=== PATIENT | male | born 1970 | race African-American/Black ===

== ENCOUNTER 2019-09-07 03:50 | Inpatient (IN) | payer MEDICAID ==
[~2019-09-07] VITALS: Ht 177.8 cm; Wt 97.5 kg
[2019-09-07] MEDS ORDERED: AZITHROMYCIN 500 MG in DEXT 5% WATER 250 ML IV SCH (07:30)
[2019-09-07 07:53] LABS: EOSINOPHILS % 14.3 % (0.0-5.0); HEMATOCRIT. 36.9 % (42.0-52.0); HEMOGLOBIN. 11.9 g/dL (14.0-18.0); LYMPHOCYTES % 20.1 % (20.0-50.0); MEAN CORPUSCULAR VOLUME 83.5 fL (80.0-94.0); MEAN PLATELET VOLUME 8.5 fl (7.4-10.4); MONOCYTES % 8.9 % (2.0-8.0); NEUTROPHILS % 55.7 % (40.0-76.0); PLATELET 316 x1000/uL (130-400); RED BLOOD CELL COUNT 4.42 mill/uL (4.7-6.1); RED CELL DISTRIBUTION WIDTH 15.5 % (11.6-14.6)
[2019-09-07 07:58] LABS: CHLORIDE 110 mEq/L (98-107)
[2019-09-07] MEDS ORDERED: FUROSEMIDE 20MG/2ML VIAL IVP ONE (10:00)
[2019-09-07 12:04] VITALS: BP 138/81
[2019-09-07] MEDS ORDERED: IOHEXOL-350 100 ML BOTTLE ONE (12:32)
[2019-09-07] MEDS ORDERED: ACETAMINOPHEN 325MG TABLET PO PRN (13:00)
[2019-09-07] MEDS ORDERED: LORAZEPAM 0.5MG TABLET PO PRN (13:00)
[2019-09-07] MEDS ORDERED: DOCUSATE SODIUM 100MG CAPSULE PO PRN (13:00)
[2019-09-07] MEDS ORDERED: ENOXAPARIN 40MG/0.4ML SYR SUBCUT SCH (13:00)
[2019-09-07] MEDS ORDERED: GUAIFENESIN 200MG/10ML SUGAR FREE UDC PO PRN (13:00)
[2019-09-07] MEDS ORDERED: ZOLPIDEM TARTRATE 5MG TABLET PO PRN (13:00)
[2019-09-07] MEDS ORDERED: ONDANSETRON HCL 4MG/2ML INJ IV PRN (13:00)
[2019-09-07] MEDS ORDERED: IPRATROPIUM/ALBUTEROL 0.5-3(2.5)MG/3ML NEB NEB PRN (13:00)
[2019-09-07] MEDS ORDERED: KETOROLAC 15MG/ML VIAL IV PRN (13:00)
[2019-09-07] MEDS ORDERED: MAGNESIUM/ALUMINUM HYDROXIDE/SIMETHICONE 30ML UDC PO PRN (13:00)
[2019-09-07] MEDS ORDERED: CLONIDINE 0.1MG TABLET PO PRN (13:00)
[2019-09-07] MEDS ORDERED: NITROGLYCERIN 0.4MG TABLET SL SL PRN (13:00)
[2019-09-07 14:00] VITALS: BP 137/80
[2019-09-07 14:27] LABS: TOTAL IRON BINDING CAPACITY 308 ug/dL (250-450)
[2019-09-07 14:40] LABS: FOLIC ACID (FOLATE) SERUM 13.5 ng/mL (>5.38)
[2019-09-07] MEDS: ASPIRIN 325MG EC TABLET PO SCH (15:07)
[2019-09-07 16:00] VITALS: BP 137/90
[2019-09-07 16:34] LABS: CREATINE KINASE 70 IU/L (39-308)
[2019-09-07 16:35] LABS: CREATINE KINASE MB FRACTION 1.3 ng/mL (0.5-3.6)
[2019-09-07 18:00] VITALS: BP 141/89
[2019-09-07] MEDS: SPIRONOLACTONE 25MG TABLET PO SCH (18:55)
[2019-09-07 20:00] VITALS: BP 121/81
[2019-09-07] MEDS: FAMOTIDINE 20MG TABLET PO SCH (20:48)
[2019-09-07] MEDS: ENOXAPARIN 30MG/0.3ML SYR SUBCUT SCH (20:48)
[2019-09-07] MEDS: FUROSEMIDE 100MG/10ML VIAL IVP SCH (20:48)
[2019-09-07] MEDS: CARVEDILOL 3.125 MG TABLET PO SCH (20:49)
[2019-09-07 22:00] VITALS: BP 110/78
[2019-09-08] VITALS (12 sets, daily range): BP systolic 92–137; BP diastolic 62–90
[2019-09-08 00:39] LABS: CREATINE KINASE 65 IU/L (39-308)
[2019-09-08 00:40] LABS: CREATINE KINASE MB FRACTION 1.6 ng/mL (0.5-3.6)
[2019-09-08] MEDS: SPIRONOLACTONE 25MG TABLET PO SCH ×2 (05:47→18:02)
[2019-09-08 08:17] LABS: EOSINOPHILS % 14.2 % (0.0-5.0); HEMATOCRIT. 35.9 % (42.0-52.0); HEMOGLOBIN. 11.7 g/dL (14.0-18.0); LYMPHOCYTES % 24.4 % (20.0-50.0); MEAN CORPUSCULAR VOLUME 82.7 fL (80.0-94.0); MEAN PLATELET VOLUME 9.2 fl (7.4-10.4); MONOCYTES % 8.9 % (2.0-8.0); NEUTROPHILS % 51.5 % (40.0-76.0); PLATELET 326 x1000/uL (130-400); RED BLOOD CELL COUNT 4.33 mill/uL (4.7-6.1); RED CELL DISTRIBUTION WIDTH 15.6 % (11.6-14.6)
[2019-09-08 08:46] LABS: CHLORIDE 107 mEq/L (98-107)
[2019-09-08 08:55] LABS: LDL CHOLESTEROL 68 mg/dL (5-100)
[2019-09-08 08:56] LABS: HDL CHOLESTEROL 43 mg/dL (40-59)
[2019-09-08] MEDS: FAMOTIDINE 20MG TABLET PO SCH ×2 (09:03→21:37)
[2019-09-08] MEDS: FUROSEMIDE 100MG/10ML VIAL IVP SCH ×2 (09:03→21:39)
[2019-09-08] MEDS: ASPIRIN 325MG EC TABLET PO SCH (09:03)
[2019-09-08] MEDS: ENOXAPARIN 30MG/0.3ML SYR SUBCUT SCH ×2 (09:03→21:38)
[2019-09-08] MEDS: CARVEDILOL 3.125 MG TABLET PO SCH ×2 (09:04→21:36)
[2019-09-08 10:12] LABS: METHADONE URINE SCREEN NEGATIVE (NEGATIVE)
[2019-09-08 10:13] LABS: *AMPHETAMINES SCREEN URINE NEGATIVE (NEGATIVE); *BARBITURATES SCREEN URINE NEGATIVE (NEGATIVE); *BENZODIAZEPINES SCREEN URINE NEGATIVE (NEGATIVE); *COCAINE SCREEN URINE NEGATIVE (NEGATIVE); OPIATES URINE SCREEN NEGATIVE (NEGATIVE); PHENCYCLIDINE URINE SCREEN NEGATIVE (NEGATIVE)
[2019-09-08 10:17] LABS: CANNABINOID URINE SCREEN NEGATIVE (NEGATIVE)
[2019-09-09] VITALS (8 sets, daily range): BP systolic 103–135; BP diastolic 58–91
[2019-09-09] MEDS: SPIRONOLACTONE 25MG TABLET PO SCH (05:04)
[2019-09-09] MEDS: FUROSEMIDE 100MG/10ML VIAL IVP SCH (08:31)
[2019-09-09] MEDS: FAMOTIDINE 20MG TABLET PO SCH (08:31)
[2019-09-09] MEDS: ASPIRIN 325MG EC TABLET PO SCH (08:32)
[2019-09-09] MEDS: CARVEDILOL 3.125 MG TABLET PO SCH (08:32)
[2019-09-09] MEDS: ENOXAPARIN 30MG/0.3ML SYR SUBCUT SCH (08:33)
[2019-09-09] MEDS ORDERED: LOSARTAN POTASSIUM 25 MG TABLET PO SCH (10:15)
== END 2019-09-09 15:00 | disposition home or self-care (01) | DRG 133 ==
LOC: ER 03:50 → EDBEDREQ 11:01 → EDBEDREQSVC 11:01 → ENRESERV 11:07 → 5EST 11:55
PROVIDERS: ADMIT Internal Medicine; ATTEND Internal Medicine
PROC: 5A09357 Assistance with Respiratory Ventilation, Less than 24 Consecutive Hours, Continuous Positive Airway Pressure (ICD-10-PCS; principal; 2019-09-07)
PROC: 5A09357 Assistance with Respiratory Ventilation, Less than 24 Consecutive Hours, Continuous Positive Airway Pressure (ICD-10-PCS; 2019-09-09)
DX: J96.00 Acute respiratory failure, unspecified whether with hypoxia or hypercapnia (principal); I50.43 Acute on chronic combined systolic (congestive) and diastolic (congestive) heart failure; J18.9 Pneumonia, unspecified organism; I11.0 Hypertensive heart disease with heart failure; I42.9 Cardiomyopathy, unspecified; D63.8 Anemia in other chronic diseases classified elsewhere; E66.9 Obesity, unspecified; F15.10 Other stimulant abuse, uncomplicated; F17.210 Nicotine dependence, cigarettes, uncomplicated; F41.1 Generalized anxiety disorder; F41.0 Panic disorder [episodic paroxysmal anxiety]; I34.0 Nonrheumatic mitral (valve) insufficiency; Z68.30 Body mass index [BMI] 30.0-30.9, adult; Z79.899 Other long term (current) drug therapy; Z83.3 Family history of diabetes mellitus; Z79.82 Long term (current) use of aspirin
CPT/HCPCS: 36415; 71045; 71275; 80053; 80061; 80305; 82550; 82553; 82607; 82746; 83036; 83540; 83550; 83735; 83880; 84100; 84484; 85025; 85379; 93005; 93306; 93970; 99285; J0456; J1650; J1940; J7060; Q9967

== ENCOUNTER 2019-11-28 20:26 | Inpatient (IN) | payer SELFPAY ==
[~2019-11-28] VITALS: Ht 180.3 cm; Wt 97.6 kg
[2019-11-28] MEDS ORDERED: FUROSEMIDE 40MG/4ML VIAL IV ONE (21:45)
[2019-11-28 22:56] LABS: BASOPHILS % 1.2 % (0.0-2.0); EOSINOPHILS % 3.8 % (0.0-5.0); HEMATOCRIT. 36.7 % (42.0-52.0); HEMOGLOBIN. 11.9 g/dL (14.0-18.0); LYMPHOCYTES % 23.1 % (20.0-50.0); MEAN CORPUSCULAR HEMOGLOBIN 26.9 pg (28.0-32.0); MEAN CORPUSCULAR VOLUME 82.7 fL (80.0-94.0); MEAN PLATELET VOLUME 8.8 fl (7.4-10.4); MONOCYTES % 9.3 % (2.0-8.0); NEUTROPHILS % 62.6 % (40.0-76.0); PLATELET 298 x1000/uL (130-400); RED BLOOD CELL COUNT 4.43 mill/uL (4.7-6.1); RED CELL DISTRIBUTION WIDTH 17.3 % (11.6-14.6)
[2019-11-28 22:58] LABS: CHLORIDE 109 mEq/L (98-107)
[2019-11-29 02:50] VITALS: BP 129/88
[2019-11-29] MEDS ORDERED: IPRATROPIUM/ALBUTEROL 0.5-3(2.5)MG/3ML NEB HHN PRN (07:30)
[2019-11-29] MEDS ORDERED: DOCUSATE SODIUM 100MG CAPSULE PO PRN (07:30)
[2019-11-29] MEDS ORDERED: HYDROCODONE/ACETAMINOPHEN 10/325MG TABLET PO PRN (07:30)
[2019-11-29] MEDS ORDERED: MAGNESIUM/ALUMINUM HYDROXIDE/SIMETHICONE 30ML UDC PO PRN (07:30)
[2019-11-29] MEDS ORDERED: GUAIFENESIN 200MG/10ML SUGAR FREE UDC PO PRN (07:30)
[2019-11-29] MEDS ORDERED: LORAZEPAM 2MG/ML CPJ IV PRN (07:30)
[2019-11-29] MEDS ORDERED: CLONIDINE 0.1MG TABLET PO PRN (07:30)
[2019-11-29] MEDS ORDERED: MORPHINE SULFATE 2 MG/ML CPJ (NOT FOR IM USE) IV PRN (07:30)
[2019-11-29] MEDS ORDERED: HYDRALAZINE 20MG/ML VIAL IV PRN (07:30)
[2019-11-29] MEDS ORDERED: ACETAMINOPHEN 325MG TABLET PO PRN (07:30)
[2019-11-29] MEDS ORDERED: DIPHENHYDRAMINE 50MG/ML VIAL IV PRN (07:30)
[2019-11-29] MEDS ORDERED: ONDANSETRON HCL 4MG/2ML INJ IV PRN (07:30)
[2019-11-29 08:00] VITALS: BP 130/90
[2019-11-29] MEDS ORDERED: ENOXAPARIN 40MG/0.4ML SYR SUBCUT SCH (09:00)
[2019-11-29 09:59] LABS: EOSINOPHILS % 3.9 % (0.0-5.0); HEMATOCRIT. 35.2 % (42.0-52.0); HEMOGLOBIN. 11.5 g/dL (14.0-18.0); LYMPHOCYTES % 16.3 % (20.0-50.0); MEAN CORPUSCULAR HEMOGLOBIN 26.9 pg (28.0-32.0); MEAN CORPUSCULAR VOLUME 82.5 fL (80.0-94.0); MEAN PLATELET VOLUME 8.6 fl (7.4-10.4); MONOCYTES % 9.9 % (2.0-8.0); NEUTROPHILS % 68.9 % (40.0-76.0); PLATELET 285 x1000/uL (130-400); RED BLOOD CELL COUNT 4.27 mill/uL (4.7-6.1)
[2019-11-29 10:23] LABS: T4 FREE 1.08 ng/dL (0.76-1.46)
[2019-11-29 12:00] VITALS: BP 128/93
[2019-11-29] MEDS: THIAMINE HCL 100MG TABLET PO SCH (12:51)
[2019-11-29] MEDS: FOLIC ACID 1MG TABLET PO SCH (12:51)
[2019-11-29] MEDS: SODIUM CHLORIDE 0.9% INJ 3ML FLUSH IVF SCH ×2 (14:00→23:41)
[2019-11-29 16:00] VITALS: BP 130/95
[2019-11-29 17:54] LABS: CREATINE KINASE 60 IU/L (39-308)
[2019-11-29 17:56] LABS: CREATINE KINASE MB FRACTION < 1.0 ng/mL (0.5-3.6)
[2019-11-29 20:00] VITALS: BP 100/74
[2019-11-30] VITALS: BP 137/98
[2019-11-30 00:59] LABS: CREATINE KINASE 55 IU/L (39-308)
[2019-11-30 01:00] LABS: CREATINE KINASE MB FRACTION < 1.0 ng/mL (0.5-3.6)
[2019-11-30 04:00] VITALS: BP 125/80
[2019-11-30] MEDS: SODIUM CHLORIDE 0.9% INJ 3ML FLUSH IVF SCH ×3 (05:04→21:11)
[2019-11-30 05:29] LABS: *AMPHETAMINES SCREEN URINE PRESUMTIVE POSITIVE (NEGATIVE); *BARBITURATES SCREEN URINE NEGATIVE (NEGATIVE); *BENZODIAZEPINES SCREEN URINE NEGATIVE (NEGATIVE); *COCAINE SCREEN URINE NEGATIVE (NEGATIVE); METHADONE URINE SCREEN NEGATIVE (NEGATIVE); OPIATES URINE SCREEN PRESUMTIVE POSITIVE (NEGATIVE); PHENCYCLIDINE URINE SCREEN NEGATIVE (NEGATIVE)
[2019-11-30 05:30] LABS: CANNABINOID URINE SCREEN PRESUMTIVE POSITIVE (NEGATIVE)
[2019-11-30 07:26] LABS: BASOPHILS % 0.8 % (0.0-2.0); EOSINOPHILS % 5.3 % (0.0-5.0); HEMATOCRIT. 35.9 % (42.0-52.0); HEMOGLOBIN. 11.9 g/dL (14.0-18.0); LYMPHOCYTES % 23.1 % (20.0-50.0); MEAN CORPUSCULAR HEMOGLOBIN 27.1 pg (28.0-32.0); MEAN PLATELET VOLUME 9.2 fl (7.4-10.4); MONOCYTES % 8.8 % (2.0-8.0); PLATELET 275 x1000/uL (130-400); RED BLOOD CELL COUNT 4.38 mill/uL (4.7-6.1); RED CELL DISTRIBUTION WIDTH 16.9 % (11.6-14.6)
[2019-11-30 07:35] LABS: CHLORIDE 108 mEq/L (98-107)
[2019-11-30 07:56] LABS: CREATINE KINASE 47 IU/L (39-308)
[2019-11-30 08:00] VITALS: BP 123/87
[2019-11-30 08:00] LABS: CREATINE KINASE MB FRACTION < 1.0 ng/mL (0.5-3.6)
[2019-11-30] MEDS: THIAMINE HCL 100MG TABLET PO SCH (08:49)
[2019-11-30] MEDS: ENOXAPARIN 30MG/0.3ML SYR SUBCUT SCH ×2 (08:49→21:11)
[2019-11-30] MEDS: FOLIC ACID 1MG TABLET PO SCH (08:49)
[2019-11-30 12:00] VITALS: BP 113/81
[2019-11-30 16:00] VITALS: BP 113/83
[2019-11-30] MEDS ORDERED: FUROSEMIDE 40MG/4ML VIAL IVP NR (16:15)
[2019-11-30] MEDS: LOSARTAN POTASSIUM 25 MG TABLET PO SCH (17:52)
[2019-11-30 20:00] VITALS: BP 122/76
[2019-11-30] MEDS: CARVEDILOL 6.25 MG TABLET PO SCH (21:11)
[2019-12-01] VITALS: BP 123/78
[2019-12-01 04:00] VITALS: BP 105/67
[2019-12-01] MEDS: SODIUM CHLORIDE 0.9% INJ 3ML FLUSH IVF SCH ×3 (05:34→21:32)
[2019-12-01 08:00] VITALS: BP 115/70
[2019-12-01] MEDS: THIAMINE HCL 100MG TABLET PO SCH (10:01)
[2019-12-01] MEDS: ENOXAPARIN 30MG/0.3ML SYR SUBCUT SCH ×2 (10:01→20:29)
[2019-12-01] MEDS: FUROSEMIDE 40MG/4ML VIAL IVP SCH (10:01)
[2019-12-01] MEDS: LOSARTAN POTASSIUM 25 MG TABLET PO SCH (10:01)
[2019-12-01] MEDS: FOLIC ACID 1MG TABLET PO SCH (10:01)
[2019-12-01] MEDS: CARVEDILOL 6.25 MG TABLET PO SCH ×2 (10:01→20:29)
[2019-12-01 11:01] LABS: HEMATOCRIT 36.9 % (42.0-52.0); HEMOGLOBIN 12.2 g/dL (14.0-18.0); MEAN CORPUSCULAR HEMOGLOBIN 27.2 pg (28.0-32.0); MEAN CORPUSCULAR VOLUME 82.3 fL (80.0-94.0); PLATELET 303 x1000/uL (130-400); RED BLOOD CELL COUNT 4.48 mill/uL (4.7-6.1); RED CELL DISTRIBUTION WIDTH 16.9 % (11.6-14.6)
[2019-12-01 11:24] LABS: CHLORIDE 106 mEq/L (98-107)
[2019-12-01 12:00] VITALS: BP 110/75
[2019-12-01 16:00] VITALS: BP 118/83
[2019-12-01 20:00] VITALS: BP 114/85
[2019-12-02] VITALS: BP 121/85
[2019-12-02 04:00] VITALS: BP 130/88
[2019-12-02] MEDS: SODIUM CHLORIDE 0.9% INJ 3ML FLUSH IVF SCH (06:02)
[2019-12-02 07:26] LABS: BASOPHILS % 1.2 % (0.0-2.0); EOSINOPHILS % 5.8 % (0.0-5.0); HEMATOCRIT. 37.1 % (42.0-52.0); LYMPHOCYTES % 27.9 % (20.0-50.0); MEAN CORPUSCULAR HEMOGLOBIN 26.6 pg (28.0-32.0); MEAN CORPUSCULAR VOLUME 82.2 fL (80.0-94.0); MONOCYTES % 13.3 % (2.0-8.0); NEUTROPHILS % 51.8 % (40.0-76.0); PLATELET 290 x1000/uL (130-400); RED BLOOD CELL COUNT 4.52 mill/uL (4.7-6.1); RED CELL DISTRIBUTION WIDTH 17.2 % (11.6-14.6)
[2019-12-02 07:46] LABS: CHLORIDE 108 mEq/L (98-107)
[2019-12-02 08:00] VITALS: BP 128/85
[2019-12-02] MEDS: THIAMINE HCL 100MG TABLET PO SCH (09:03)
[2019-12-02] MEDS: CARVEDILOL 6.25 MG TABLET PO SCH (09:04)
[2019-12-02] MEDS: LOSARTAN POTASSIUM 25 MG TABLET PO SCH (09:05)
[2019-12-02] MEDS: FOLIC ACID 1MG TABLET PO SCH (09:05)
[2019-12-02] MEDS: ENOXAPARIN 30MG/0.3ML SYR SUBCUT SCH (09:05)
[2019-12-02] MEDS: FUROSEMIDE 40MG/4ML VIAL IVP SCH (09:06)
[2019-12-02 16:00] VITALS: BP 104/60
[2019-12-02 17:03] VITALS: BP 104/60
== END 2019-12-02 17:50 | disposition home or self-care (01) | DRG 194 ==
LOC: ER 23:56 → 5WST 11-29 00:15 → ENRESERV 11-29 01:45
PROVIDERS: ADMIT Internal Medicine; ATTEND Internal Medicine
DX: I11.0 Hypertensive heart disease with heart failure (principal); J96.00 Acute respiratory failure, unspecified whether with hypoxia or hypercapnia; N17.0 Acute kidney failure with tubular necrosis; I50.23 Acute on chronic systolic (congestive) heart failure; E87.8 Other disorders of electrolyte and fluid balance, not elsewhere classified; I42.9 Cardiomyopathy, unspecified; D64.9 Anemia, unspecified; D72.829 Elevated white blood cell count, unspecified; F10.10 Alcohol abuse, uncomplicated; F12.90 Cannabis use, unspecified, uncomplicated; I34.0 Nonrheumatic mitral (valve) insufficiency; F15.10 Other stimulant abuse, uncomplicated; Z59.0 Homelessness; Z91.14 Patient's other noncompliance with medication regimen; Z71.51 Drug abuse counseling and surveillance of drug abuser
CPT/HCPCS: 36415; 71045; 80048; 80053; 80061; 80305; 82550; 82553; 83036; 83880; 84439; 84443; 84484; 85025; 85027; 85379; 93005; 93970; 99285; J1200; J1650; J1940; J2270

== ENCOUNTER 2020-02-09 18:36 | Inpatient (IN) | payer MEDICAID ==
[~2020-02-09] VITALS: Ht 180.3 cm; Wt 94.3 kg
[2020-02-09] MEDS ORDERED: FUROSEMIDE 20MG/2ML VIAL IVP ONE (20:30)
[2020-02-09 20:48] LABS: BASOPHILS % 0.9 % (0.0-2.0); EOSINOPHILS % 3.7 % (0.0-5.0); HEMATOCRIT. 35.9 % (42.0-52.0); HEMOGLOBIN. 11.8 g/dL (14.0-18.0); LYMPHOCYTES % 24.7 % (20.0-50.0); MEAN CORPUSCULAR HEMOGLOBIN 27.4 pg (28.0-32.0); MEAN CORPUSCULAR VOLUME 83.3 fL (80.0-94.0); MEAN PLATELET VOLUME 8.9 fl (7.4-10.4); MONOCYTES % 8.2 % (2.0-8.0); NEUTROPHILS % 62.5 % (40.0-76.0); PLATELET 321 x1000/uL (130-400); RED BLOOD CELL COUNT 4.31 mill/uL (4.7-6.1)
[2020-02-09 20:54] LABS: CHLORIDE 110 mEq/L (98-107)
[2020-02-10 11:37] VITALS: BP 132/89
[2020-02-10 12:00] VITALS: BP 143/99
[2020-02-10] MEDS: LOSARTAN POTASSIUM 25 MG TABLET PO SCH (13:13)
[2020-02-10] MEDS: FUROSEMIDE 40MG/4ML VIAL IVP SCH ×2 (13:13→16:51)
[2020-02-10 16:00] VITALS: BP 142/89
[2020-02-10] MEDS ORDERED: DOCUSATE SODIUM 100MG CAPSULE PO PRN (16:00)
[2020-02-10] MEDS ORDERED: ONDANSETRON HCL 4MG/2ML INJ IV PRN (16:00)
[2020-02-10] MEDS ORDERED: GUAIFENESIN 200MG/10ML SUGAR FREE UDC PO PRN (16:00)
[2020-02-10] MEDS ORDERED: LORAZEPAM 0.5MG TABLET PO PRN (16:00)
[2020-02-10] MEDS ORDERED: ACETAMINOPHEN 325MG TABLET PO PRN (16:00)
[2020-02-10] MEDS ORDERED: IPRATROPIUM/ALBUTEROL 0.5-3(2.5)MG/3ML NEB HHN PRN (16:00)
[2020-02-10] MEDS ORDERED: HYDROCODONE/ACETAMINOPHEN 5/325MG TABLET PO PRN (16:00)
[2020-02-10] MEDS ORDERED: CLONIDINE 0.1MG TABLET PO PRN (16:00)
[2020-02-10 20:00] VITALS: BP 144/99
[2020-02-10] MEDS: CARVEDILOL 12.5MG TABLET PO SCH (21:50)
[2020-02-10] MEDS: ENOXAPARIN 30MG/0.3ML SYR SUBCUT SCH (21:50)
[2020-02-11] VITALS: BP 95/56
[2020-02-11 00:53] LABS: *AMPHETAMINES SCREEN URINE NEGATIVE (NEGATIVE); *BARBITURATES SCREEN URINE NEGATIVE (NEGATIVE); *BENZODIAZEPINES SCREEN URINE NEGATIVE (NEGATIVE)
[2020-02-11 00:54] LABS: *COCAINE SCREEN URINE NEGATIVE (NEGATIVE); CANNABINOID URINE SCREEN NEGATIVE (NEGATIVE); METHADONE URINE SCREEN NEGATIVE (NEGATIVE); OPIATES URINE SCREEN NEGATIVE (NEGATIVE); PHENCYCLIDINE URINE SCREEN NEGATIVE (NEGATIVE)
[2020-02-11 04:00] VITALS: BP 125/74
[2020-02-11] MEDS: FUROSEMIDE 40MG/4ML VIAL IVP SCH ×2 (06:15→17:15)
[2020-02-11 06:56] LABS: CHLORIDE 105 mEq/L (98-107)
[2020-02-11 07:05] LABS: PHOSPHORUS 3.9 mg/dL (2.5-4.9)
[2020-02-11 07:17] LABS: TOTAL IRON BINDING CAPACITY 365 ug/dL (250-450)
[2020-02-11 07:19] LABS: BASOPHILS % 0.9 % (0.0-2.0); EOSINOPHILS % 3.4 % (0.0-5.0); HEMATOCRIT. 37.2 % (42.0-52.0); HEMOGLOBIN. 12.2 g/dL (14.0-18.0); LYMPHOCYTES % 20.8 % (20.0-50.0); MEAN CORPUSCULAR HEMOGLOBIN 26.8 pg (28.0-32.0); MEAN CORPUSCULAR VOLUME 81.6 fL (80.0-94.0); MEAN PLATELET VOLUME 9.2 fl (7.4-10.4); MONOCYTES % 10.5 % (2.0-8.0); NEUTROPHILS % 64.4 % (40.0-76.0); PLATELET 322 x1000/uL (130-400); RED BLOOD CELL COUNT 4.56 mill/uL (4.7-6.1); RED CELL DISTRIBUTION WIDTH 17.7 % (11.6-14.6)
[2020-02-11 08:00] VITALS: BP 138/83
[2020-02-11] MEDS: LOSARTAN POTASSIUM 25 MG TABLET PO SCH (09:36)
[2020-02-11] MEDS: CARVEDILOL 12.5MG TABLET PO SCH (09:36)
[2020-02-11] MEDS: ENOXAPARIN 30MG/0.3ML SYR SUBCUT SCH (09:38)
[2020-02-11 12:00] VITALS: BP 110/71
[2020-02-11] MEDS ORDERED: LOSA25TA3 PO (13:54)
[2020-02-11] MEDS ORDERED: FURO-151 MT (13:54)
[2020-02-11] MEDS ORDERED: COR12 PO (13:54)
[2020-02-11 16:00] VITALS: BP 105/64
[2020-02-11 17:12] VITALS: BP 110/71
== END 2020-02-11 18:45 | disposition home or self-care (01) | DRG 194 ==
LOC: ER 18:36 → 5WST 02-10 01:34 → ENRESERV 02-10 09:39 → ER 02-10 10:16
PROVIDERS: ADMIT Internal Medicine; ATTEND Internal Medicine
DX: I13.0 Hypertensive heart and chronic kidney disease with heart failure and stage 1 through stage 4 chronic kidney disease, or unspecified chronic kidney disease (principal); N17.0 Acute kidney failure with tubular necrosis; R65.11 Systemic inflammatory response syndrome (SIRS) of non-infectious origin with acute organ dysfunction; E87.8 Other disorders of electrolyte and fluid balance, not elsewhere classified; I42.9 Cardiomyopathy, unspecified; I50.43 Acute on chronic combined systolic (congestive) and diastolic (congestive) heart failure; N18.2 Chronic kidney disease, stage 2 (mild); D64.9 Anemia, unspecified; D72.829 Elevated white blood cell count, unspecified; T50.996A Underdosing of other drugs, medicaments and biological substances, initial encounter; F15.90 Other stimulant use, unspecified, uncomplicated; F12.90 Cannabis use, unspecified, uncomplicated; I34.0 Nonrheumatic mitral (valve) insufficiency; I16.0 Hypertensive urgency; E66.9 Obesity, unspecified; Z71.6 Tobacco abuse counseling; F17.200 Nicotine dependence, unspecified, uncomplicated; Z59.0 Homelessness; Y92.89 Other specified places as the place of occurrence of the external cause; Z68.29 Body mass index [BMI] 29.0-29.9, adult; Z72.89 Other problems related to lifestyle; Z71.3 Dietary counseling and surveillance
CPT/HCPCS: 36415; 71045; 80048; 80053; 80305; 82728; 83540; 83550; 83735; 83880; 84100; 84484; 85025; 85379; 93005; 99285; J1650; J1940

== ENCOUNTER 2020-08-16 02:03 | Emergency (ER) | payer MEDICAID ==
[~2020-08-16] VITALS: Ht 188 cm; Wt 98.0 kg
[~2020-08-16 02:03] MED LIST: COR12 PO; FURO-151 MT; LOSA25TA3 PO
[2020-08-16] MEDS ORDERED: FUROSEMIDE 40MG/4ML VIAL IV ONE (02:30)
[2020-08-16 05:30] LABS: BASOPHILS % 1.4 % (0.0-2.0); EOSINOPHILS % 6.9 % (0.0-5.0); HEMATOCRIT. 35.3 % (42.0-52.0); HEMOGLOBIN. 11.5 g/dL (14.0-18.0); LYMPHOCYTES % 19.4 % (20.0-50.0); MEAN CORPUSCULAR HEMOGLOBIN 27.9 pg (28.0-32.0); MEAN CORPUSCULAR VOLUME 86.1 fL (80.0-94.0); MEAN PLATELET VOLUME 8.7 fl (7.4-10.4); MONOCYTES % 7.9 % (2.0-8.0); NEUTROPHILS % 64.4 % (40.0-76.0); PLATELET 334 x1000/uL (130-400); RED BLOOD CELL COUNT 4.11 mill/uL (4.7-6.1); RED CELL DISTRIBUTION WIDTH 16.4 % (11.6-14.6)
[2020-08-16 05:37] LABS: CHLORIDE 110 mEq/L (98-107)
[2020-08-16 06:35] VITALS: BP 148/89
== END 2020-08-16 06:38 | disposition home or self-care (01) ==
LOC: ER 02:12
DX: I50.9 Heart failure, unspecified (principal); Z79.899 Other long term (current) drug therapy; Z20.828 Contact with and (suspected) exposure to other viral communicable diseases
CPT/HCPCS: 36415; 71045; 80053; 83880; 84484; 85025; 96374; 99284; C9803; J1940; U0003

== ENCOUNTER 2020-10-15 06:23 | Inpatient (IN) | payer MEDICAID ==
[~2020-10-15] VITALS: Ht 177.8 cm; Wt 99.1 kg
[2020-10-15] MEDS ORDERED: NITROGLYCERIN 0.4MG TABLET SL SL ONE (07:15)
[2020-10-15] MEDS ORDERED: FUROSEMIDE 40MG/4ML VIAL IVP ONE (07:15)
[2020-10-15] MEDS ORDERED: ASPIRIN 325MG EC TABLET PO ONE (07:15)
[2020-10-15 07:17] LABS: BASOPHILS % 0.8 % (0.0-2.0); EOSINOPHILS % 4.6 % (0.0-5.0); HEMATOCRIT. 31.1 % (42.0-52.0); HEMOGLOBIN. 9.8 g/dL (14.0-18.0); LYMPHOCYTES % 20.7 % (20.0-50.0); MEAN CORPUSCULAR HEMOGLOBIN 25.1 pg (28.0-32.0); MEAN CORPUSCULAR VOLUME 79.7 fL (80.0-94.0); MEAN PLATELET VOLUME 8.5 fl (7.4-10.4); NEUTROPHILS % 64.9 % (40.0-76.0); PLATELET 385 x1000/uL (130-400); RED BLOOD CELL COUNT 3.91 mill/uL (4.7-6.1)
[2020-10-15 07:30] LABS: CHLORIDE 107 mEq/L (98-107)
[2020-10-15] MEDS ORDERED: CLONIDINE 0.1MG TABLET PO PRN (11:45)
[2020-10-15] MEDS ORDERED: ONDANSETRON HCL 4MG/2ML INJ IV PRN (11:45)
[2020-10-15] MEDS ORDERED: ACETAMINOPHEN 325MG TABLET PO PRN (11:45)
[2020-10-15] MEDS ORDERED: MORPHINE SULFATE 2 MG/ML CPJ (NOT FOR IM USE) IV PRN (11:45)
[2020-10-15] MEDS ORDERED: DIPHENHYDRAMINE 50MG/ML VIAL IV PRN (11:45)
[2020-10-15] MEDS ORDERED: ENOXAPARIN 40MG/0.4ML SYR SUBCUT SCH (11:45)
[2020-10-15] MEDS ORDERED: ASPI-1406 PO (11:49)
[2020-10-15 12:00] VITALS: BP 130/84
[2020-10-15] MEDS: ENOXAPARIN 30MG/0.3ML SYR SUBCUT SCH ×2 (13:43→21:03)
[2020-10-15 16:00] VITALS: BP 124/87
[2020-10-15 17:29] LABS: TOTAL IRON BINDING CAPACITY 422 ug/dL (250-450)
[2020-10-15 17:48] LABS: FOLIC ACID (FOLATE) SERUM 14.9 ng/mL (>5.38)
[2020-10-15] MEDS: FUROSEMIDE 40MG/4ML VIAL IV SCH (17:48)
[2020-10-15 18:06] VITALS: BP 124/87
[2020-10-15 19:30] VITALS: BP 112/81
[2020-10-15 20:07] LABS: *AMPHETAMINES SCREEN URINE NEGATIVE (NEGATIVE); *BARBITURATES SCREEN URINE NEGATIVE (NEGATIVE); *COCAINE SCREEN URINE NEGATIVE (NEGATIVE)
[2020-10-15 20:08] LABS: *BENZODIAZEPINES SCREEN URINE NEGATIVE (NEGATIVE); CANNABINOID URINE SCREEN PRESUMTIVE POSITIVE (NEGATIVE); METHADONE URINE SCREEN NEGATIVE (NEGATIVE); OPIATES URINE SCREEN NEGATIVE (NEGATIVE); PHENCYCLIDINE URINE SCREEN NEGATIVE (NEGATIVE)
[2020-10-15] MEDS: CARVEDILOL 12.5MG TABLET PO SCH (21:04)
[2020-10-16] VITALS: BP 132/65
[2020-10-16 04:00] VITALS: BP 136/70
[2020-10-16 06:54] LABS: BASOPHILS % 1.4 % (0.0-2.0); HEMATOCRIT. 30.3 % (42.0-52.0); HEMOGLOBIN. 9.6 g/dL (14.0-18.0); LYMPHOCYTES % 18.4 % (20.0-50.0); MEAN CORPUSCULAR HEMOGLOBIN 25.2 pg (28.0-32.0); MEAN CORPUSCULAR VOLUME 79.2 fL (80.0-94.0); MEAN PLATELET VOLUME 8.6 fl (7.4-10.4); NEUTROPHILS % 67.2 % (40.0-76.0); PLATELET 375 x1000/uL (130-400); RED BLOOD CELL COUNT 3.82 mill/uL (4.7-6.1); RED CELL DISTRIBUTION WIDTH 17.2 % (11.6-14.6)
[2020-10-16 07:00] LABS: CHLORIDE 106 mEq/L (98-107)
[2020-10-16 07:17] LABS: LDL CHOLESTEROL 70 mg/dL (5-100)
[2020-10-16 07:18] LABS: HDL CHOLESTEROL 35 mg/dL (40-59)
[2020-10-16 08:00] VITALS: BP 116/77
[2020-10-16] MEDS: LOSARTAN POTASSIUM 25 MG TABLET PO SCH (08:54)
[2020-10-16] MEDS: CARVEDILOL 12.5MG TABLET PO SCH ×2 (08:54→20:22)
[2020-10-16] MEDS: ASPIRIN 81MG TABLET PO SCH (08:54)
[2020-10-16] MEDS: FUROSEMIDE 40MG/4ML VIAL IV SCH ×2 (08:54→17:13)
[2020-10-16] MEDS: ENOXAPARIN 30MG/0.3ML SYR SUBCUT SCH ×2 (08:55→20:26)
[2020-10-16] MEDS: FERROUS SULFATE 325MG TABLET PO SCH ×2 (11:55→17:13)
[2020-10-16] MEDS: DOCUSATE SODIUM 250MG CAPSULE PO SCH (11:55)
[2020-10-16 12:00] VITALS: BP 97/54
[2020-10-16 16:00] VITALS: BP 104/65
[2020-10-17] VITALS: BP 123/82
[2020-10-17 04:30] VITALS: BP 112/75
[2020-10-17 08:00] VITALS: BP 124/83
[2020-10-17] MEDS: CARVEDILOL 12.5MG TABLET PO SCH ×2 (08:15→20:16)
[2020-10-17] MEDS: DOCUSATE SODIUM 250MG CAPSULE PO SCH (08:15)
[2020-10-17] MEDS: FERROUS SULFATE 325MG TABLET PO SCH ×3 (08:15→17:21)
[2020-10-17] MEDS: FUROSEMIDE 40MG/4ML VIAL IV SCH ×2 (08:15→17:21)
[2020-10-17] MEDS: LOSARTAN POTASSIUM 25 MG TABLET PO SCH (08:15)
[2020-10-17] MEDS: ASPIRIN 81MG TABLET PO SCH (08:16)
[2020-10-17] MEDS: ENOXAPARIN 30MG/0.3ML SYR SUBCUT SCH ×2 (08:16→20:18)
[2020-10-17 09:07] LABS: CHLORIDE 106 mEq/L (98-107)
[2020-10-17 09:54] LABS: BASOPHILS % 0.9 % (0.0-2.0); EOSINOPHILS % 4.5 % (0.0-5.0); HEMATOCRIT. 32.9 % (42.0-52.0); HEMOGLOBIN. 10.5 g/dL (14.0-18.0); LYMPHOCYTES % 22.2 % (20.0-50.0); MEAN CORPUSCULAR VOLUME 78.4 fL (80.0-94.0); MEAN PLATELET VOLUME 8.8 fl (7.4-10.4); NEUTROPHILS % 61.4 % (40.0-76.0); PLATELET 402 x1000/uL (130-400)
[2020-10-17 12:00] VITALS: BP 96/62
[2020-10-17] MEDS ORDERED: ASPI-1406 PO (12:11)
[2020-10-17] MEDS ORDERED: COR12 PO (12:11)
[2020-10-17] MEDS ORDERED: LOSA25TA3 PO (12:11)
[2020-10-17] MEDS ORDERED: FURO-151 MT (12:11)
[2020-10-17 16:00] VITALS: BP 99/68
[2020-10-17 20:00] VITALS: BP 109/68
[2020-10-18] VITALS: BP 113/72
[2020-10-18 04:00] VITALS: BP 108/75
[2020-10-18] MEDS: FERROUS SULFATE 325MG TABLET PO SCH ×3 (06:20→17:01)
[2020-10-18 08:00] VITALS: BP 125/86
[2020-10-18] MEDS: FUROSEMIDE 40MG/4ML VIAL IV SCH ×2 (08:19→17:01)
[2020-10-18] MEDS: ASPIRIN 81MG TABLET PO SCH (08:19)
[2020-10-18] MEDS: DOCUSATE SODIUM 250MG CAPSULE PO SCH (08:19)
[2020-10-18] MEDS: CARVEDILOL 12.5MG TABLET PO SCH ×2 (08:19→19:59)
[2020-10-18] MEDS: LOSARTAN POTASSIUM 25 MG TABLET PO SCH (08:19)
[2020-10-18] MEDS: ENOXAPARIN 30MG/0.3ML SYR SUBCUT SCH ×2 (08:20→19:58)
[2020-10-18 12:00] VITALS: BP 90/50
[2020-10-18 16:00] VITALS: BP 109/72
[2020-10-18 20:00] VITALS: BP 127/72
[2020-10-19] VITALS: BP 120/82
[2020-10-19 04:00] VITALS: BP 117/87
[2020-10-19] MEDS: FERROUS SULFATE 325MG TABLET PO SCH (05:51)
[2020-10-19 08:00] VITALS: BP 95/58
[2020-10-19] MEDS: ASPIRIN 81MG TABLET PO SCH (08:43)
[2020-10-19] MEDS: DOCUSATE SODIUM 250MG CAPSULE PO SCH (08:43)
[2020-10-19] MEDS: FUROSEMIDE 40MG/4ML VIAL IV SCH (08:43)
[2020-10-19] MEDS: ENOXAPARIN 30MG/0.3ML SYR SUBCUT SCH (08:44)
[2020-10-19] MEDS: CARVEDILOL 12.5MG TABLET PO SCH (08:44)
[2020-10-19] MEDS: LOSARTAN POTASSIUM 25 MG TABLET PO SCH (08:44)
[2020-10-19] MEDS ORDERED: FERR325T23 PO (10:45)
[2020-10-19] MEDS ORDERED: IRON SUCROSE COMPLEX 100 MG/5 ML ML IV SCH (11:30)
[2020-10-19 12:00] VITALS: BP 101/62
[2020-10-19 12:25] VITALS: BP 101/62
== END 2020-10-19 13:30 | disposition home or self-care (01) | DRG 133 ==
LOC: ER 06:26 → 5WST 09:02 → ENRESERV 09:37 → 5WST 11:41
PROVIDERS: ADMIT Internal Medicine; ATTEND Internal Medicine
DX: J96.00 Acute respiratory failure, unspecified whether with hypoxia or hypercapnia (principal); I11.0 Hypertensive heart disease with heart failure; I50.23 Acute on chronic systolic (congestive) heart failure; N17.9 Acute kidney failure, unspecified; D50.9 Iron deficiency anemia, unspecified; I27.20 Pulmonary hypertension, unspecified; I42.9 Cardiomyopathy, unspecified; J44.9 Chronic obstructive pulmonary disease, unspecified; F12.90 Cannabis use, unspecified, uncomplicated; F10.10 Alcohol abuse, uncomplicated; Y90.9 Presence of alcohol in blood, level not specified; I34.0 Nonrheumatic mitral (valve) insufficiency; Z91.14 Patient's other noncompliance with medication regimen
CPT/HCPCS: 36415; 71045; 80048; 80053; 80061; 80305; 82607; 82728; 82746; 83540; 83550; 83735; 83880; 84443; 84484; 85025; 93005; 93306; 93970; 99285; J1650; J1940

== ENCOUNTER 2021-01-20 08:35 | Emergency (ER) | payer MEDICAID ==
[~2021-01-20] VITALS: Ht 180.3 cm; Wt 91.0 kg
[~2021-01-20 08:35] MED LIST changes: +ASPI-1406 PO; +FERR325T23 PO
[2021-01-20] MEDS ORDERED: ONDANSETRON HCL 4MG/2ML INJ IV STA (09:09)
[2021-01-20] MEDS ORDERED: KETOROLAC 30MG/ML VIAL IV STA (09:09)
[2021-01-20] MEDS ORDERED: VANCOMYCIN 1 G PREMIX 200 ML IV ONE (09:15)
[2021-01-20] MEDS ORDERED: DEXAMETHASONE 10 MG/ML VIAL IV ONE (09:15)
[2021-01-20] MEDS ORDERED: CLINDAMYCIN 600 MG in DEXTROSE 5% WATER 50 ML IV ONE (09:15)
[2021-01-20] MEDS ORDERED: CLINDAMYCIN 600MG PREMIX 50 ML IV SCH (09:30)
[2021-01-20 09:38] LABS: BASOPHILS % 0.4 % (0.0-2.0); EOSINOPHILS % 0.3 % (0.0-5.0); HEMATOCRIT. 42.1 % (42.0-52.0); HEMOGLOBIN. 13.8 g/dL (14.0-18.0); LYMPHOCYTES % 7.5 % (20.0-50.0); MEAN CORPUSCULAR HEMOGLOBIN 27.7 pg (28.0-32.0); MEAN CORPUSCULAR VOLUME 84.2 fL (80.0-94.0); MEAN PLATELET VOLUME 8.4 fl (7.4-10.4); MONOCYTES % 13.4 % (2.0-8.0); NEUTROPHILS % 78.4 % (40.0-76.0); PLATELET 245 x1000/uL (130-400); RED BLOOD CELL COUNT 4.99 mill/uL (4.7-6.1); RED CELL DISTRIBUTION WIDTH 17.6 % (11.6-14.6)
[2021-01-20 09:45] LABS: CHLORIDE 104 mEq/L (98-107)
[2021-01-20 09:54] LABS: INR 1.2; PARTIAL THROMBOPLASTIN TIME 32.2 sec (23.4-31.0); PROTHROMBIN TIME 12.9 sec (9.6-11.0)
[2021-01-20 10:14] LABS: MONOTEST NEGATIVE (NEGATIVE)
[2021-01-20] MEDS ORDERED: IOHEXOL-300 100 ML BOTTLE ONE (10:43)
[2021-01-20] MEDS ORDERED: SODIUM CHLORIDE 0.9% 1,000 ML IV ONE (12:15)
[2021-01-20 13:00] VITALS: BP 141/84
== END 2021-01-20 14:11 | disposition short-term general hospital (02) ==
LOC: ER 08:35 → CANBEDREQ 15:30
DX: J36 Peritonsillar abscess (principal); J39.8 Other specified diseases of upper respiratory tract; Z20.822 Contact with and (suspected) exposure to COVID-19; I50.9 Heart failure, unspecified; J44.9 Chronic obstructive pulmonary disease, unspecified
CPT/HCPCS: 36415; 70491; 71045; 80053; 83605; 84145; 85025; 85610; 85730; 86308; 87040; 87070; 87426; 87430; 93005; 96365; 96366; 96367; 96375; 99285; J1100; J1885; J2405; J3370; J3490; J7030; Q9967; Z7610; J7060

== ENCOUNTER 2025-02-01 20:34 | Inpatient (IN) | payer MEDICAID, OTHER ==
[~2025-02-01] VITALS: Ht 182.9 cm; Wt 99.3 kg
[~2025-02-01 20:34] MED LIST changes: +LEVO-65 MT; +LOSA-412 PO; -LOSA25TA3 PO; +OMEP40CA20 MT
[2025-02-01 21:27] LABS: MEAN CORPUSCULAR HEMOGLOBIN 17.1 pg (28.0-32.0); MEAN CORPUSCULAR VOLUME 56.9 fL (80.0-94.0); PLATELET 379 x1000/uL (130-400); RED CELL DISTRIBUTION WIDTH 24.2 % (11.6-14.6); WHITE BLOOD COUNT 10.5 x1000/uL (4.5-11.0)
[2025-02-01 21:28] LABS: MEAN PLATELET VOLUME 8.6 fl (7.4-10.4)
[2025-02-01 21:32] LABS: DIFFERENTIAL COMMENT 1; HEMATOCRIT. 17.1 % (42.0-52.0); HEMOGLOBIN. 5.1 g/dL (14.0-18.0)
[2025-02-01 21:36] LABS: CHLORIDE 109 mEq/L (98-107); SODIUM 140 mEq/L (136-145)
[2025-02-01 21:37] LABS: CALCIUM 8.8 mg/dL (8.7-10.4); CARBON DIOXIDE 24 mEq/L (21-32)
[2025-02-01 21:42] LABS: CREATININE 1.2 mg/dL (0.6-1.3); GLUCOSE 102 mg/dL (70-105); UREA NITROGEN BLOOD 16 mg/dL (9-23)
[2025-02-01 21:43] LABS: TROPONIN I HIGH SENSITIVITY 16 ng/L (3.0-53)
[2025-02-01 21:45] LABS: MICROCYTOSIS 3+; PLATELET ESTIMATE NORMAL
[2025-02-01 21:46] LABS: ANISOCYTOSIS 2+; HYPOCHROMASIA 3+; OVALOCYTES 1+
[2025-02-01] MEDS: FUROSEMIDE 40MG TABLET PO ONE (22:02)
[2025-02-02] VITALS (27 sets, daily range): BP systolic 120–189; BP diastolic 64–98; PULSE 71–101; RESP 17–22; TEMP 36.33624–37.16964; O2SAT 97–98
[2025-02-02 02:15] LABS: HEMATOCRIT 16.7 % (42.0-52.0); HEMOGLOBIN 4.8 g/dL (14.0-18.0)
[2025-02-02 02:39] LABS: IRON 26 ug/dL (65-175)
[2025-02-02 02:42] LABS: TOTAL IRON BINDING CAPACITY 351 ug/dl (250-425)
[2025-02-02] MEDS: HYDRALAZINE 20MG/ML VIAL IV PRN (03:24)
[2025-02-02] MEDS ORDERED: NON FORMULARY MED XX ONE (07:00)
[2025-02-02] MEDS ORDERED: NALOXONE HCL 0.4MG/ML VIAL IV PRN (10:00)
[2025-02-02] MEDS: HYDROCODONE/ACETAMINOPHEN 10/325MG TABLET PO PRN (10:04)
[2025-02-02] MEDS: CARVEDILOL 12.5MG TABLET PO SCH (10:04)
[2025-02-02] MEDS: LOSARTAN 50 MG TABLET PO SCH (10:05)
[2025-02-02] MEDS: FUROSEMIDE 40MG TABLET PO SCH (10:05)
[2025-02-02] MEDS: ASPIRIN 81MG TABLET PO SCH (10:06)
[2025-02-02] MEDS: IRON SUCROSE COMPLEX 100 MG/5 ML ML IV SCH ×2 (10:28→14:00)
[2025-02-02] MEDS ORDERED: ONDANSETRON HCL 4MG/2ML INJ IV PRN (10:45)
[2025-02-02] MEDS ORDERED: ACETAMINOPHEN 325MG TABLET PO PRN (10:45)
[2025-02-02] MEDS: FERROUS SULFATE 325MG TABLET PO SCH (12:23)
[2025-02-02] MEDS ORDERED: IPRATROPIUM/ALBUTEROL 0.5-3(2.5)MG/3ML NEB HHN PRN (12:30)
[2025-02-02 13:06] LABS: BASOPHILS % 2.1 % (0.0-2.0); EOSINOPHILS % 18.7 % (0.0-5.0); LYMPHOCYTES % 9.6 % (20.0-50.0); MEAN CORPUSCULAR HEMOGLOBIN 17.6 pg (28.0-32.0); MEAN CORPUSCULAR HGB CONC 29.6 g/dL (31.0-37.0); MEAN CORPUSCULAR VOLUME 59.3 fL (80.0-94.0); MEAN PLATELET VOLUME 8.6 fl (7.4-10.4); MONOCYTES % 10.5 % (2.0-8.0); NEUTROPHILS % 59.1 % (40.0-76.0); PLATELET 339 x1000/uL (130-400); RED BLOOD CELL COUNT 3.34 mill/uL (4.7-6.1); RED CELL DISTRIBUTION WIDTH 25.4 % (11.6-14.6); WHITE BLOOD COUNT 11.6 x1000/uL (4.5-11.0)
[2025-02-02 13:10] LABS: DIFFERENTIAL COMMENT 1
[2025-02-02 13:14] LABS: HEMATOCRIT. 19.8 % (42.0-52.0); HEMOGLOBIN. 5.9 g/dL (14.0-18.0)
[2025-02-02 13:26] LABS: IRON 156 ug/dL (65-175)
[2025-02-02 13:29] LABS: TOTAL IRON BINDING CAPACITY 323 ug/dl (250-425)
[2025-02-02 13:31] LABS: THYROID STIMULATING HORMONE 0.81 uIU/mL (0.55-4.78)
[2025-02-02] MEDS ORDERED: NON FORMULARY MED XX SCH (13:45)
[2025-02-02 13:46] LABS: HEPATITIS B SURFACE ANTIGEN NEGATIVE (Negative)
[2025-02-02 14:08] LABS: HEPATITIS C AB NON REACTIVE (Neg) (Negative)
[2025-02-02 18:24] LABS: CLARITY URINE CLEAR (CLEAR); COLOR URINE YELLOW (YELLOW); GLUCOSE URINE NEGATIVE (NEGATIVE); KETONES URINE NEGATIVE (NEGATIVE); LEUKOCYTE ESTERASE URINE NEGATIVE (NEGATIVE); NITRITE URINE NEGATIVE (NEGATIVE); OCCULT BLOOD URINE NEGATIVE (NEGATIVE); PROTEIN URINE NEGATIVE (NEGATIVE)
[2025-02-02 18:36] LABS: *AMPHETAMINES SCREEN URINE NEGATIVE (NEGATIVE); *BARBITURATES SCREEN URINE NEGATIVE (NEGATIVE); *BENZODIAZEPINES SCREEN URINE NEGATIVE (NEGATIVE); *COCAINE SCREEN URINE NEGATIVE (NEGATIVE); CANNABINOID URINE SCREEN PRESUMPTIVE POSITIVE (NEGATIVE); ECSTASY MDMA SCREEN URINE NEGATIVE (NEGATIVE); METHADONE URINE SCREEN NEGATIVE (NEGATIVE); OPIATES URINE SCREEN NEGATIVE (NEGATIVE); PHENCYCLIDINE URINE SCREEN NEGATIVE (NEGATIVE)
[2025-02-02 18:46] LABS: BACTERIA URINE NONE SEEN; RBC URINE NONE SEEN /hpf (0-2); SQUAMOUS EPITHELIAL CELL URINE RARE /lpf (RARE/1+); WBC URINE NONE SEEN /hpf (0-2)
[2025-02-02] MEDS: PANTOPRAZOLE SODIUM 40 MG/VIAL IV SCH (20:28)
[2025-02-02] MEDS ORDERED: CARVEDILOL 12.5MG TABLET PO SCH (21:00)
[2025-02-02] MEDS: FUROSEMIDE 40MG/4ML VIAL IVP NR (21:28)
[2025-02-03] VITALS (8 sets, daily range): BP systolic 114–159; BP diastolic 60–97; PULSE 77–102; RESP 16–20; TEMP 36.1–36.8; O2SAT 97–99
[2025-02-03 02:24] LABS: HEMATOCRIT. 28.1 % (42.0-52.0); HEMOGLOBIN. 8.6 g/dL (14.0-18.0); MEAN CORPUSCULAR HEMOGLOBIN 20.1 pg (28.0-32.0); MEAN CORPUSCULAR HGB CONC 30.7 g/dL (31.0-37.0); MEAN CORPUSCULAR VOLUME 65.3 fL (80.0-94.0); MEAN PLATELET VOLUME 8.7 fl (7.4-10.4); PLATELET 382 x1000/uL (130-400); RED CELL DISTRIBUTION WIDTH 31.5 % (11.6-14.6); WHITE BLOOD COUNT 14.2 x1000/uL (4.5-11.0)
[2025-02-03 02:34] LABS: DIFFERENTIAL COMMENT 1
[2025-02-03 03:33] LABS: ANISOCYTOSIS 2+; NUCLEATED RED BLOOD CELLS 1 /100 WBC; PLATELET ESTIMATE NORMAL
[2025-02-03 06:19] LABS: INR 1.4; PROTHROMBIN TIME 14.7 sec (9.6-11.0)
[2025-02-03 06:37] LABS: CHLORIDE 104 mEq/L (98-107); POTASSIUM 3.8 mEq/L (3.5-5.1); SODIUM 140 mEq/L (136-145)
[2025-02-03 06:38] LABS: CALCIUM 8.7 mg/dL (8.7-10.4); CARBON DIOXIDE 26 mEq/L (21-32)
[2025-02-03 06:41] LABS: UREA NITROGEN BLOOD 16 mg/dL (9-23)
[2025-02-03 06:43] LABS: CREATININE 1.2 mg/dL (0.6-1.3); GLUCOSE 98 mg/dL (70-105)
[2025-02-03 06:44] LABS: HEMATOCRIT. 26.3 % (42.0-52.0); HEMOGLOBIN. 8.4 g/dL (14.0-18.0); MEAN CORPUSCULAR HEMOGLOBIN 20.7 pg (28.0-32.0); MEAN CORPUSCULAR VOLUME 64.5 fL (80.0-94.0); PLATELET 381 x1000/uL (130-400); RED BLOOD CELL COUNT 4.08 mill/uL (4.7-6.1)
[2025-02-03 06:45] LABS: ALANINE AMINOTRANSFERASE 50 IU/L (10-49); ALBUMIN 3.7 g/dL (3.2-4.8); ASPARTATE AMINOTRANSFERASE 26 IU/L (<34); BILIRUBIN DIRECT 0.9 mg/dL (<=3.0)
[2025-02-03 06:46] LABS: BILIRUBIN TOTAL 1.9 mg/dL (0.1-1.0); PHOSPHORUS 3.8 mg/dL (2.5-4.9); PROTEIN TOTAL 6.6 g/dL (6.0-8.3)
[2025-02-03 07:04] LABS: FOLIC ACID (FOLATE) SERUM 7.45 ng/mL (>5.38); VITAMIN B12 SERUM 578 pg/mL (211-911)
[2025-02-03 08:04] LABS: DIFFERENTIAL COMMENT 1
[2025-02-03] MEDS ORDERED: LOSARTAN 25 MG TABLET PO SCH (09:00)
[2025-02-03] MEDS: IPRATROPIUM/ALBUTEROL 0.5-3(2.5)MG/3ML NEB HHN SCH (09:00)
[2025-02-03] MEDS ORDERED: FUROSEMIDE 40MG/4ML VIAL IVP SCH (09:00)
[2025-02-03] MEDS: FOLIC ACID/VITAMIN B COMP W-C TABLET PO SCH (09:38)
[2025-02-03 11:48] LABS: ANISOCYTOSIS 3+; HYPOCHROMASIA 1+
[2025-02-03 11:49] LABS: MICROCYTOSIS 3+; OVALOCYTES 1+; PLATELET ESTIMATE NORMAL
[2025-02-03] MEDS ORDERED: IOHEXOL-350 100 ML BOTTLE ONE (11:59)
[2025-02-03] MEDS: FUROSEMIDE 40MG/4ML VIAL IVP SCH (12:31)
[2025-02-03] MEDS ORDERED: SODIUM CHLORIDE 0.45% 250 ML IV NR (13:15)
[2025-02-03] MEDS: PIPERACILLIN/TAZO 3.375G/50ML 50 ML IV SCH (16:00)
[2025-02-03] MEDS: FUROSEMIDE 100MG/10ML VIAL IVP SCH (19:03)
[2025-02-03] MEDS: GUAIFENESIN-DM 200MG-20MG/10ML UDC PO PRN (23:53)
[2025-02-04] VITALS (9 sets, daily range): BP systolic 119–153; BP diastolic 50–83; PULSE 71–92; RESP 16–20; TEMP 36.1–37; O2SAT 96–100
[2025-02-04 08:03] LABS: CHLORIDE 101 mEq/L (98-107); POTASSIUM 3.7 mEq/L (3.5-5.1); SODIUM 139 mEq/L (136-145)
[2025-02-04 08:04] LABS: CALCIUM 8.4 mg/dL (8.7-10.4); CARBON DIOXIDE 28 mEq/L (21-32)
[2025-02-04 08:09] LABS: CREATININE 1.4 mg/dL (0.6-1.3); GLUCOSE 83 mg/dL (70-105); UREA NITROGEN BLOOD 11 mg/dL (9-23)
[2025-02-04 08:12] LABS: BILIRUBIN TOTAL 1.6 mg/dL (0.1-1.0)
[2025-02-04 08:26] LABS: HEMOGLOBIN. 8.8 g/dL (14.0-18.0); MEAN CORPUSCULAR HGB CONC 30.2 g/dL (31.0-37.0); MEAN CORPUSCULAR VOLUME 66.1 fL (80.0-94.0); MEAN PLATELET VOLUME 9.1 fl (7.4-10.4); PLATELET 406 x1000/uL (130-400); RED BLOOD CELL COUNT 4.39 mill/uL (4.7-6.1); RED CELL DISTRIBUTION WIDTH 32.6 % (11.6-14.6); WHITE BLOOD COUNT 18.6 x1000/uL (4.5-11.0)
[2025-02-04 08:28] LABS: DIFFERENTIAL COMMENT 1
[2025-02-04 19:54] LABS: ANISOCYTOSIS 3+; HYPOCHROMASIA 2+; MICROCYTOSIS 3+; PLATELET ESTIMATE INCREASED
[2025-02-05] VITALS (10 sets, daily range): BP systolic 107–140; BP diastolic 60–67; PULSE 70–90; RESP 16–21; TEMP 36.2–36.6; O2SAT 96–98
[2025-02-05 07:29] LABS: INR 1.4; PROTHROMBIN TIME 14.9 sec (9.6-11.0)
[2025-02-05 07:30] LABS: BASOPHILS % 1.1 % (0.0-2.0); EOSINOPHILS % 14.6 % (0.0-5.0); HEMATOCRIT. 29.6 % (42.0-52.0); HEMOGLOBIN. 9.1 g/dL (14.0-18.0); MEAN CORPUSCULAR HEMOGLOBIN 20.6 pg (28.0-32.0); MEAN CORPUSCULAR HGB CONC 30.9 g/dL (31.0-37.0); MEAN CORPUSCULAR VOLUME 66.6 fL (80.0-94.0); MEAN PLATELET VOLUME 8.8 fl (7.4-10.4); MONOCYTES % 10.3 % (2.0-8.0); PLATELET 442 x1000/uL (130-400); RED BLOOD CELL COUNT 4.45 mill/uL (4.7-6.1); RED CELL DISTRIBUTION WIDTH 33.2 % (11.6-14.6)
[2025-02-05 07:38] LABS: CARBON DIOXIDE 30 mEq/L (21-32); CHLORIDE 101 mEq/L (98-107); POTASSIUM 3.4 mEq/L (3.5-5.1)
[2025-02-05 07:39] LABS: CALCIUM 9.2 mg/dL (8.7-10.4); SODIUM 141 mEq/L (136-145)
[2025-02-05 07:43] LABS: CREATININE 1.5 mg/dL (0.6-1.3)
[2025-02-05 07:44] LABS: GLUCOSE 93 mg/dL (70-105); UREA NITROGEN BLOOD 17 mg/dL (9-23)
[2025-02-05 07:46] LABS: BILIRUBIN TOTAL 1.2 mg/dL (0.1-1.0); PHOSPHORUS 4.2 mg/dL (2.5-4.9)
[2025-02-05 08:15] LABS: DIFFERENTIAL COMMENT 1
[2025-02-05] MEDS: PHYTONADIONE 10MG/ML INJ SUBCUT NR (10:30)
[2025-02-06] VITALS (11 sets, daily range): BP systolic 118–137; BP diastolic 54–77; PULSE 72–97; RESP 16–20; TEMP 36.3–36.5; O2SAT 95–98
[2025-02-06] MEDS: POTASSIUM CHLORIDE 20MEQ TABLET SR PO SCH (18:03)
[2025-02-06 18:25] LABS: BASOPHILS % 2.1 % (0.0-2.0); EOSINOPHILS % 15.9 % (0.0-5.0); HEMATOCRIT. 33.7 % (42.0-52.0); HEMOGLOBIN. 10.2 g/dL (14.0-18.0); LYMPHOCYTES % 12.7 % (20.0-50.0); MEAN CORPUSCULAR HEMOGLOBIN 20.8 pg (28.0-32.0); MEAN CORPUSCULAR HGB CONC 30.3 g/dL (31.0-37.0); MEAN CORPUSCULAR VOLUME 68.6 fL (80.0-94.0); MEAN PLATELET VOLUME 8.7 fl (7.4-10.4); MONOCYTES % 9.9 % (2.0-8.0); NEUTROPHILS % 59.4 % (40.0-76.0); PLATELET 466 x1000/uL (130-400); RED BLOOD CELL COUNT 4.91 mill/uL (4.7-6.1); RED CELL DISTRIBUTION WIDTH 34.2 % (11.6-14.6); WHITE BLOOD COUNT 14.8 x1000/uL (4.5-11.0)
[2025-02-06 18:29] LABS: POTASSIUM 3.9 mEq/L (3.5-5.1)
[2025-02-06 18:31] LABS: CALCIUM 9.3 mg/dL (8.7-10.4)
[2025-02-06 18:32] LABS: ADD RBC MORPHOLOGY YES; DIFFERENTIAL COMMENT 1
[2025-02-06 18:34] LABS: INR 1.3; PROTHROMBIN TIME 13.5 sec (9.6-11.0)
[2025-02-06 18:40] LABS: CREATININE 2.3 mg/dL (0.6-1.3)
[2025-02-06 18:43] LABS: ANISOCYTOSIS 3+; HYPOCHROMASIA 2+; MICROCYTOSIS 3+; PLATELET ESTIMATE INCREASED
[2025-02-06 18:44] LABS: OVALOCYTES 1+
[2025-02-06 23:22] LABS: POTASSIUM 4.4 mEq/L (3.5-5.1)
[2025-02-07 06:22] LABS: BASOPHILS % 2.1 % (0.0-2.0); EOSINOPHILS % 14.6 % (0.0-5.0); HEMATOCRIT. 31.1 % (42.0-52.0); HEMOGLOBIN. 9.7 g/dL (14.0-18.0); MEAN CORPUSCULAR HEMOGLOBIN 21.5 pg (28.0-32.0); MEAN CORPUSCULAR VOLUME 69.2 fL (80.0-94.0); MEAN PLATELET VOLUME 8.7 fl (7.4-10.4); MONOCYTES % 12.7 % (2.0-8.0); NEUTROPHILS % 56.6 % (40.0-76.0); PLATELET 414 x1000/uL (130-400); WHITE BLOOD COUNT 14.1 x1000/uL (4.5-11.0)
[2025-02-07 06:29] LABS: CHLORIDE 102 mEq/L (98-107); INR 1.3; POTASSIUM 4.3 mEq/L (3.5-5.1); PROTHROMBIN TIME 13.7 sec (9.6-11.0); SODIUM 141 mEq/L (136-145)
[2025-02-07 06:31] LABS: CARBON DIOXIDE 30 mEq/L (21-32)
[2025-02-07 06:32] LABS: CALCIUM 9.4 mg/dL (8.7-10.4); DIFFERENTIAL COMMENT 1
[2025-02-07 06:33] LABS: ADD RBC MORPHOLOGY NO
[2025-02-07 06:36] LABS: CREATININE 2.1 mg/dL (0.6-1.3)
[2025-02-07 06:37] LABS: GLUCOSE 92 mg/dL (70-105); UREA NITROGEN BLOOD 27 mg/dL (9-23)
[2025-02-07 06:38] LABS: ALANINE AMINOTRANSFERASE 37 IU/L (10-49)
[2025-02-07 06:39] LABS: ASPARTATE AMINOTRANSFERASE 31 IU/L (<34); BILIRUBIN DIRECT 0.3 mg/dL (<=3.0); BILIRUBIN TOTAL 0.7 mg/dL (0.1-1.0); PROTEIN TOTAL 6.8 g/dL (6.0-8.3)
[2025-02-07 08:00] VITALS: BP 96/72; PULSE 71; RESP 20; TEMP 36.3; O2SAT 96
[2025-02-07 09:10] VITALS: PULSE 81; RESP 18; O2SAT 96
[2025-02-07] MEDS ORDERED: PROPOFOL 200MG/20ML VIAL IV ONE ×2 (11:45→12:21)
[2025-02-07] MEDS ORDERED: ONDANSETRON HCL 4MG/2ML INJ IV PRN (12:00)
[2025-02-07] MEDS ORDERED: OMEP40CA20 MT (12:10)
[2025-02-07] MEDS ORDERED: LOSA50TA41 PO (12:10)
[2025-02-07] MEDS ORDERED: FURO-151 MT (12:10)
[2025-02-07] MEDS ORDERED: POTA-205 MT (12:10)
[2025-02-07 16:00] VITALS: BP 121/74; PULSE 71; RESP 20; TEMP 36.4
[2025-02-07 17:42] VITALS: BP 121/74; PULSE 71; TEMP 97.5; O2SAT 98
[2025-02-07] MEDS ORDERED: FUROSEMIDE 40MG TABLET PO SCH (18:00)
== END 2025-02-07 19:55 | disposition home or self-care (01) | DRG 663 ==
LOC: ER 20:34 → 6WST 22:17 → EDBEDREQ 22:24 → EDBEDREQTM 22:24 → ENRESERV 22:29 → 6WST 02-02 00:17
PROVIDERS: ADMIT Internal Medicine; ATTEND Internal Medicine
PROC: 30233N1 Transfusion of Nonautologous Red Blood Cells into Peripheral Vein, Percutaneous Approach (ICD-10-PCS; principal; 2025-02-02)
PROC: 0DB78ZX Excision of Stomach, Pylorus, Via Natural or Artificial Opening Endoscopic, Diagnostic (ICD-10-PCS; 2025-02-07)
DX: D50.9 Iron deficiency anemia, unspecified (principal); J96.01 Acute respiratory failure with hypoxia; I50.23 Acute on chronic systolic (congestive) heart failure; K29.61 Other gastritis with bleeding; I42.0 Dilated cardiomyopathy; R16.0 Hepatomegaly, not elsewhere classified; K22.2 Esophageal obstruction; I11.0 Hypertensive heart disease with heart failure; J44.9 Chronic obstructive pulmonary disease, unspecified; F12.90 Cannabis use, unspecified, uncomplicated; K59.00 Constipation, unspecified; K44.9 Diaphragmatic hernia without obstruction or gangrene; Z79.899 Other long term (current) drug therapy; Z91.148 Patient's other noncompliance with medication regimen for other reason
CPT/HCPCS: 36415; 36430; 71045; 74177; 80048; 80076; 80305; 81003; 82247; 82248; 82378; 82607; 82746; 83540; 83550; 83605; 83735; 83880; 84100; 84132; 84145; 84443; 84484; 85014; 85018; 85025; 85044; 86705; 86850; 86900; 86920; 87340; 88305; 93005; 93306; 93970; 94070; 94640; 94664; 94760; 99285; J0360; J1940; J2470; J2543; J2704; J7040; P9016; Q9967